=== PATIENT | female | born 1945 | race Hispanic/Latino ===

== ENCOUNTER → 2024-07-26 | Day surgery (SDC) | payer MEDICARE ==
[2024-07-21 13:57] LABS: BASOPHILS % 0.8 % (0.0-1.0); EOSINOPHILS % 0.6 % (0.0-6.0); HEMOGLOBIN 11.5 g/dL (12.0-16.0); LYMPHOCYTES # (AUTO) 1.7 (1.0-3.2); LYMPHOCYTES % 33.5 % (18.0-39.1); MEAN CORPUSCULAR HEMOGLOBIN 30.9 pg (28-32); MEAN CORPUSCULAR HGB CONC 32.9 g/dL (31-35); MEAN CORPUSCULAR VOLUME 94.1 fL (81-99); MONOCYTES # (AUTO) 0.5 (0.2-0.8); MONOCYTES % 9.3 % (4.4-11.3); NEUTROPHILS # (AUTO) 2.8 (2.1-6.9); NEUTROPHILS % 55.8 % (38.7-80.0); PLATELET COUNT 163 x10e3/uL (140-360); RED BLOOD COUNT 3.72 x10e6/uL (3.6-5.1); RED CELL DISTRIBUTION WIDTH 13.3 % (11.7-14.4); WHITE BLOOD COUNT 5.08 x10e3/uL (4.8-10.8)
[~2024-07-26] MED LIST: DICYCLOMINE HCL20 MG PO; FAMOTIDINE20 MG PO; GLUCAGON FOR INJ 1 MG VIAL ONE; LACTATED RINGER'S 1,000 ML ONE; LIDOCAINE HCL 2% LOCAL INJ 5 ML SDV VIAL INJ ONE; PROPOFOL IV EMULSION 50 ML IV ONE
[2024-07-26 11:47] VITALS: TEMP 97.2
[2024-07-26 12:20] VITALS: BP 124/70; PULSE 78; RESP 16; O2SAT 97
== END | disposition home or self-care (01) ==
LOC: OR 08:04
PROVIDERS: ATTEND Internal Medicine Gastroenterology
DX: K21.00 Gastro-esophageal reflux disease with esophagitis, without bleeding (principal); K29.50 Unspecified chronic gastritis without bleeding; K57.92 Diverticulitis of intestine, part unspecified, without perforation or abscess without bleeding; K31.89 Other diseases of stomach and duodenum; K64.1 Second degree hemorrhoids; K59.00 Constipation, unspecified; R63.4 Abnormal weight loss; N28.9 Disorder of kidney and ureter, unspecified; E87.6 Hypokalemia; R06.02 Shortness of breath; M06.9 Rheumatoid arthritis, unspecified; F32.A Depression, unspecified; Z88.1 Allergy status to other antibiotic agents; Z88.8 Allergy status to other drugs, medicaments and biological substances; Z01.810 Encounter for preprocedural cardiovascular examination; Z01.812 Encounter for preprocedural laboratory examination
CPT/HCPCS: 36415; 43239; 45378; 85025; 88305; 88342; 93005; J1610; J2003; J2704; J7121